=== PATIENT | male | born 1945 | race Caucasian/White ===

== ENCOUNTER 2017-01-07 15:39 | Observation (INO) | payer OTHER ==
[2017-01-07] MEDS ORDERED: ADACEL TDaP IM ONE ×2 (16:09→16:12)
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
[2017-01-07] MEDS ORDERED: NS IRRIGATION 1000 ML 1,000 ML ONE (18:42)
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
[2017-01-07] MEDS ORDERED: TORADOL 30 MG VIAL IVP STA (19:37)
[2017-01-07] MEDS ORDERED: NEOSPORIN OINT ONE (19:44)
--- NOTE | 2017-01-07 19:47 | RAD ---
EXAM: Left Lower Extremity X-ray INDICATION: Pain COMPARISION: No comparison TECHNIQUE: PA and Lat, 2 view FINDINGS: No acute fracture or dislocation. The joint spaces are preserved. The soft tissues are normal. No ra diopaque foreign body. IMPRESSION: Normal left lower extremity x-ray examination Reported By:
[2017-01-07] MEDS ORDERED: NEOSPORIN OINT TOP ONE (19:50)
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
[2017-01-07] MEDS ORDERED: TORADOL 30 MG VIAL ONE (19:55)
[2017-01-07] MEDS ORDERED: ROCEPHIN 1 GM IV PREMIX * OUT OF STOCK 50 ML IV ONE (19:55)
[2017-01-07] MEDS: ROCEPHIN VIAL 1 GM 1 GM in NS 50 ML IV + SPIKE MINIBAG* 50 ML IV SCH (19:59)
--- NOTE | 2017-01-07 20:18 | RAD ---
EXAM: Right Lower Extremity X-ray INDICATION: Pain COMPARISION: No comparison TECHNIQUE: PA and Lat, 2 view FINDINGS: No acute fracture or dislocation. The joint spaces are preserved. The soft tissues are normal. No ra diopaque foreign body. IMPRESSION: Normal right lower extremity x-ray examination Reported By:
[2017-01-07 20:22] LABS: BASOPHILS % (AUTO) 0.2 % (0.2-1.0); EOSINOPHILS % (AUTO) 0.1 % (0.9-2.9); HEMOGLOBIN 14.2 g/dL (13.5-18.0); LYMPHOCYTES # (AUTO) 0.8 X10^3/uL (1.3-2.9); MEAN CORPUSCULAR HEMOGLOBIN 30.2 pg (27.0-34.0); MEAN CORPUSCULAR HGB CONC 33.9 g/dL (33.0-35.0); MEAN PLATELET VOLUME 8.5 fL (7.4-11.0); MONOCYTES # (AUTO) 1.1 x10^3/uL (0.3-0.8); MONOCYTES % (AUTO) 7.2 % (0.0-13.0); NEUTROPHILS % (AUTO) 87.5 % (42.0-75.0); PLATELET COUNT 202 X10^3/uL (150.0-450.0); RED BLOOD COUNT 4.72 X10^6/uL (4.7-6.0); RED CELL DISTRIBUTION WIDTH 13.6 % (11.6-16.5)
[2017-01-07 20:38] LABS: BLOOD UREA NITROGEN 17 mg/dL (7-18); CALCIUM 8.7 mg/dL (8.5-10.1); CARBON DIOXIDE 30.2 mmol/L (21-32); CHLORIDE 107 mmol/L (98-107); COR NA(FOR HYPERGLY) 147 mmol/L (136-145); CREATININE 1.17 mg/dL (0.70-1.30); GLUCOSE 145 mg/dL (65-99); SODIUM 146 mmol/L (136-145); TROPONIN I < 0.02 ng/mL (0-1.5); eGFR BLACK RACES > 60 (>60); eGFR NON BLACK RACES > 60 (>60)
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
[2017-01-07 21:12] LABS: ALANINE AMINOTRANSFERASE 32 Units/L (12-78); ALBUMIN 3.6 g/dL (3.4-5.0); ALKALINE PHOSPHATASE 57 Units/L (46-116); ASPARTATE AMINO TRANSFERASE 60 Units/L (15-37); MAGNESIUM 1.8 mg/dL (1.7-2.9); TOTAL PROTEIN 6.7 g/dL (6.4-8.2)
[2017-01-07 21:21] LABS: CKMB % 1.7 % (<4)
[2017-01-07 21:22] LABS: CREATINE KINASE MB 35.7 ng/mL (0-4.0)
[2017-01-07 21:25] LABS: CREATINE KINASE 2129 Units/L (39-308)
[2017-01-07] MEDS ORDERED: ZOFRAN INJ 4 MG VIAL IVP PRN (21:35)
[2017-01-07] MEDS ORDERED: TORADOL 30 MG VIAL IVP PRN (21:35)
[2017-01-07] MEDS: NS 1/2 + KCL 20 MEQ/L 1,000 ML IV SCH (22:48)
[2017-01-07] MEDS: PEPCID 20 MG IV PREMIX* 20 MG/50 ML BAG IV SCH (23:09)
[2017-01-07 23:24] VITALS: BMI 25.1
[2017-01-08 02:47] LABS: BILIRUBIN,URINE NEGATIVE (NEGATIVE); BLOOD/HEMOGLOBIN,URINE 1+ (NEGATIVE); GLUCOSE, URINE 1+ (NEGATIVE); KETONES,URINE 2+ (NEGATIVE); LEUKOCYTE ESTERASE ,URINE 1+ (NEGATIVE); NITRITES,URINE NEGATIVE (NEGATIVE); PROTEIN,URINE 2+ (NEGATIVE); UROBILINOGEN,URINE NORMAL (NORMAL)
[2017-01-08 02:53] LABS: APPEARANCE,URINE SLIGHTLY HAZY (CLEAR); COLOR,URINE YELLOW (YELLOW)
[2017-01-08 02:54] LABS: BACTERIA,URINE TRACE /HPF (NEGATIVE); HYALINE CASTS, URINE FEW /LPF (NEGATIVE); MUCUS,URINE MANY /HPF (NEGATIVE); SQUAMOUS EPITHELIAL CELL,UR RARE /HPF (NEGATIVE)
[2017-01-08 04:23] LABS: BASOPHILS % (AUTO) 0.2 % (0.2-1.0); EOSINOPHILS % (AUTO) 0.3 % (0.9-2.9); HEMOGLOBIN 12.2 g/dL (13.5-18.0); LYMPHOCYTES # (AUTO) 1.2 X10^3/uL (1.3-2.9); LYMPHOCYTES % (AUTO) 12.3 % (21.0-51.0); MEAN CORPUSCULAR HEMOGLOBIN 30.9 pg (27.0-34.0); MEAN CORPUSCULAR VOLUME 88.4 fL (80.0-100.0); MONOCYTES # (AUTO) 1.2 x10^3/uL (0.3-0.8); MONOCYTES % (AUTO) 11.9 % (0.0-13.0); NEUTROPHILS # (AUTO) 7.5 x10^3/uL (2.2-4.8); NEUTROPHILS % (AUTO) 75.3 % (42.0-75.0); PLATELET COUNT 186 X10^3/uL (150.0-450.0); RED BLOOD COUNT 3.96 X10^6/uL (4.7-6.0); RED CELL DISTRIBUTION WIDTH 13.8 % (11.6-16.5); WHITE BLOOD COUNT 9.9 X10^3/uL (3.6-10.0)
[2017-01-08 05:02] LABS: ALANINE AMINOTRANSFERASE 31 Units/L (12-78); ALKALINE PHOSPHATASE 44 Units/L (46-116); ASPARTATE AMINO TRANSFERASE 62 Units/L (15-37); BLOOD UREA NITROGEN 18 mg/dL (7-18); CALCIUM 7.9 mg/dL (8.5-10.1); CARBON DIOXIDE 28.1 mmol/L (21-32); CHLORIDE 106 mmol/L (98-107); COR CA(FOR HYPOALB) 8.7 mg/dL (8.5-10.1); COR NA(FOR HYPERGLY) 142 mmol/L (136-145); GLUCOSE 136 mg/dL (65-99); SODIUM 141 mmol/L (136-145); TOTAL PROTEIN 5.8 g/dL (6.4-8.2); TROPONIN I < 0.02 ng/mL (0-1.5); eGFR BLACK RACES > 60 (>60); eGFR NON BLACK RACES > 60 (>60)
[2017-01-08 05:04] LABS: CREATINE KINASE 2249 Units/L (39-308); CREATINE KINASE MB 23.2 ng/mL (0-4.0)
[2017-01-08] MEDS ORDERED: TORADOL 15 MG VIAL IVP PRN (06:25)
[2017-01-08] MEDS: NS 1/2 + KCL 20 MEQ/L 1,000 ML IV SCH (06:36)
[2017-01-08] MEDS: ROCEPHIN VIAL 1 GM 1 GM in NS 50 ML IV + SPIKE MINIBAG* 50 ML IV SCH (08:51)
[2017-01-08] MEDS: PEPCID 20 MG IV PREMIX* 20 MG/50 ML BAG IV SCH (08:51)
[2017-01-08] MEDS ORDERED: ROCEPHIN VIAL 1 GM 1 GM in NS 50 ML IV + SPIKE MINIBAG* 50 ML IV SCH (09:00)
[2017-01-08 11:07] VITALS: BP 108/65
[2017-01-08 11:15] LABS: TROPONIN I < 0.02 ng/mL (0-1.5)
[2017-01-08 11:17] LABS: CKMB % 0.8 % (<4); CREATINE KINASE 2225 Units/L (39-308)
[2017-01-08 11:21] LABS: CREATINE KINASE MB 16.7 ng/mL (0-4.0)
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
== END 2017-01-08 11:00 | disposition home or self-care (01) ==
LOC: ER 15:39 → ICU 21:29
PROVIDERS: ADMIT Internal Medicine; ATTEND Internal Medicine
PROC: 0HQGXZZ Repair Left Hand Skin, External Approach (ICD-10-PCS; principal; 2017-01-07)
PROC: 0HCQXZZ Extirpation of Matter from Finger Nail, External Approach (ICD-10-PCS; 2017-01-07)
PROC: 0HQ1XZZ Repair Face Skin, External Approach (ICD-10-PCS; 2017-01-07)
PROC: 3E0234Z Introduction of Serum, Toxoid and Vaccine into Muscle, Percutaneous Approach (ICD-10-PCS; 2017-01-07)
DX: S61.522A Laceration with foreign body of left wrist, initial encounter (principal); S01.81XA Laceration without foreign body of other part of head, initial encounter; S80.12XA Contusion of left lower leg, initial encounter; S00.03XA Contusion of scalp, initial encounter; V49.88XA Car occupant (driver) (passenger) injured in other specified transport accidents, initial encounter; W22.11XA Striking against or struck by driver side automobile airbag, initial encounter; Y92.488 Other paved roadways as the place of occurrence of the external cause; R94.31 Abnormal electrocardiogram [ECG] [EKG]; M62.82 Rhabdomyolysis; D72.828 Other elevated white blood cell count; E87.0 Hyperosmolality and hypernatremia; R94.4 Abnormal results of kidney function studies; R41.82 Altered mental status, unspecified; Z23 Encounter for immunization
CPT/HCPCS: 10120; 12002; 36415; 70450; 71010; 71250; 72125; 72192; 73552; 73590; 80053; 81001; 82550; 82553; 83735; 84484; 85025; 85610; 85730; 90471; 93005; 96365; 96374; 96375; 99284; A4216; A4222; J7030; S0028; G0378; J0696; J1885; J2405

== ENCOUNTER → 2017-02-07 | Outpatient (CLI) | payer SELFPAY ==
[2017-01-08 11:07] VITALS: BP 108/65
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
== END ==
LOC: RAD 08:19
PROVIDERS: ATTEND Internal Medicine
DX: M79.605 Pain in left leg (principal)
CPT/HCPCS: 73720; 73723